=== PATIENT | male | born 2000 | race Caucasian/White ===

== ENCOUNTER 2020-04-12 19:27 | Emergency (ER) | payer OTHER ==
[2020-04-12] MEDS ORDERED: KETOROLAC 30 MG/ML VIAL IVP STA (19:44)
--- NOTE | 2020-04-12 19:48 | ED Physician Documentation ---
PD HPI CHEST PAIN - Stated complaint Stated Complaint: CHEST PAIN, L ARM PAIN - Chief complaint Chief Complaint: Cardiac - History obtained from History obtained from: Patient - Additional information Additional information: He has had substernal chest pain rating to the left arm worse with deep breathing the last 15 hours. He has no history of heart troubles and no coronary disease runs in the family. 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 Review of Systems Ten Systems: 10 systems reviewed and negative Constitutional: denies: Fever, Chills Throat: denies: Sore throat Cardiac: denies: Palpitations Respiratory: denies: Cough PD PAST MEDICAL HISTORY - Present Medications Home Medications: Ambulatory Orders Medication Instructions Recorded Confirmed Colchicine [Colcrys] 0.6 mg PO DAILY #90 tablet 04/12/20 - Allergies Allergies/Adverse Reactions: Allergies Allergy/AdvReac Type Severity Reaction Status Date / Time No Known Drug Allergies Allergy Verified 04/12/20 19:33 PD ED PE NORMAL - Vitals Vital signs reviewed: Yes - General General: Alert and oriented X 3, No acute distress - HEENT HEENT: PERRL, EOMI - Neck Neck: Supple, no meningeal sign, No bony TTP - Cardiac Cardiac: RRR, No murmur - Respiratory Respiratory: No respiratory distress ([place] with deep breathing), Clear bilaterally - Abdomen Abdomen: Non tender - Back Back: No CVA TTP, No spinal TTP - Derm Derm: Normal color, Warm and dry - Extremities Extremities: No edema, No calf tenderness / cord - Neuro Neuro: Alert and oriented X 3, Normal speech Results - Vitals Vitals: Vital Signs - 24 hr 04/12/20 04/12/20 04/12/20 19:31 19:33 20:03 Temperature 36.2 C L 36.2 C L Heart Rate 97 93 86 Respiratory 18 16 11 L Rate Blood Pressure 121/74 123/77 121/79 O2 Saturation 100 100 100 04/12/20 04/12/20 20:34 20:43 Temperature 36.9 C Heart Rate 103 H Respiratory 16 Rate Blood Pressure 121/75 O2 Saturation 100 Oxygen O2 Source Room air - EKG (time done) 1936 Rate: Rate (enter#) (101) Rhythm: Sinus tachycardia [place]: Normal Intervals: Normal [place] Ischemia: Other (Mild diffuse ST elevation most consistent with pericarditis. No ST depression) Computer interpretation: Agree with computer - Labs Labs: Laboratory Tests 04/12/20 04/12/20 04/12/20 19:41 19:41 19:41 WBC 15.5 H RBC 4.75 Hgb 14.2 Hct 42.9 MCV 90.3 MCH 29.9 MCHC 33.1 RDW 12.3 Plt Count 191 MPV 9.5 Neut # (Auto) 13.1 H Lymph # (Auto) 1.1 L [place] # (Auto) 1.1 H Eos # (Auto) 0.1 Baso # (Auto) 0.0 Absolute Nucleated RBC 0.00 Nucleated RBC % 0.0 Sodium 135 Potassium 3.7 Chloride 95 L Carbon Dioxide 32 Anion Gap 8.0 BUN 14 Creatinine 0.7 Estimated GFR (MDRD) 142 Glucose 109 H Calcium 9.5 Total Bilirubin 0.9 AST 21 ALT 14 Alkaline Phosphatase 67 Troponin I High Sens 4.1 Total Protein 7.8 Albumin 4.6 Globulin 3.2 Albumin/Globulin Ratio 1.4 - Rads (name of study) 2v cxr Radiology: EMP read contemporaneously (Normal) PD MEDICAL DECISION MAKING - ED course ED course: 19-year-old gentleman with pleuritic chest pain, EKG suggestive of pericarditis. He was pain-free after Toradol. Dissection and Embolism are considered, but nothing in the history, physical, or exam to suggest these.. His young age combined with greater than 12 hours of pain and a negative troponin rule out ACS. Departure - Departure Disposition: 01 Home, Self Care Clinical Impression: Pericarditis Qualifiers: Pericarditis type: idiopathic Chronicity: acute Qualified Code(s): I30.0 - Acute nonspecific idiopathic pericarditis Condition: Good Record reviewed to determine appropriate education?: Yes Instructions: ED Chest Pain Pericarditis Prescriptions: Colchicine [Colcrys] 0.6 mg PO DAILY #90 tablet Comments: Take ibuprofen 600mg the times a day until pain is gone, then twice a day for 2 weeks, then once a day for 2 weeks. Ibuprofen available over the counter. This is in addition to the colchicine prescription. Followup with primary care within 1 week. Discharge Date/Time: 04/12/20 20:46
[2020-04-12 19:50] LABS: BASOPHILS % (AUTO) 0.3 %; EOSINOPHILS # (AUTO) 0.1 10^3/uL (0.0-0.7); EOSINOPHILS % (AUTO) 0.6 %; HCT - HEMATOCRIT 42.9 % (42.0-52.0); HGB - HEMOGLOBIN 14.2 g/dL (14.0-18.0); LYMPHOCYTES # (AUTO) 1.1 10^3/uL (1.5-3.5); MEAN CORPUSCULAR HEMOGLOBIN 29.9 pg (27.0-31.0); MEAN CORPUSCULAR HGB CONC 33.1 g/dL (32.0-36.0); MEAN CORPUSCULAR VOLUME 90.3 fL (80.0-94.0); MEAN PLATELET VOLUME 9.5 fL (7.4-11.4); MONOCYTES # (AUTO) 1.1 10^3/uL (0.0-1.0); MONOCYTES % (AUTO) 7.2 %; NEUTROPHILS # (AUTO) 13.1 10^3/uL (1.5-6.6); NEUTROPHILS % (AUTO) 84.7 %; PLT - PLATELET COUNT 191 10^3/uL (130-450); RED BLOOD COUNT 4.75 10^6/uL (4.70-6.10); RED CELL DISTRIBUTION WIDTH 12.3 % (12.0-15.0); WHITE BLOOD COUNT 15.5 x10^3/uL (4.8-10.8)
[2020-04-12 20:03] LABS: ALBUMIN 4.6 g/dL (3.2-5.5); ALBUMIN/GLOBULIN RATIO 1.4 (1.0-2.2); BILIRUBIN,TOTAL 0.9 mg/dL (0.2-1.0); CALCIUM 9.5 mg/dL (8.5-10.3); CREATININE 0.7 mg/dL (0.6-1.2); POTASSIUM 3.7 mmol/L (3.5-5.0); TOTAL PROTEIN 7.8 g/dL (6.7-8.2)
--- NOTE | 2020-04-12 20:17 | XRAY Report ---
PROCEDURE: Chest 2 View X-Ray INDICATIONS: chest pain TECHNIQUE: 2 view(s) of the chest. COMPARISON: None. FINDINGS: Surgical changes and devices: None. Lungs and pleura: No pleural effusions or pneumothorax. Lungs are clear. Mediastinum: Mediastinal contours are normal. Heart size is normal. Bones and chest wall: No suspicious bony abnormalities. Soft tissues appear unremarkable. IMPRESSION: Chest without acute cardiopulmonary abnormalities. No focal airspace disease. Reviewed by: Franky Brooks MD on 04/12/2020 8:16 PM [facility] Approved by: Franky Brooks MD on 04/12/2020 8:16 PM [facility] Station ID: [id number]
[2020-04-12] MEDS ORDERED: COLCHICINE 0.6 MG TABLET PO STA (20:29)
[2020-04-12 20:34] VITALS: BP 121/75
== END 2020-04-12 20:46 | disposition home or self-care (01) ==
LOC: ED 19:27
DX: I30.0 Acute nonspecific idiopathic pericarditis (principal); R00.0 Tachycardia, unspecified
CPT/HCPCS: 36415; 71046; 80053; 84484; 85025; 93005; 96374; 99284; A9270